=== PATIENT | male | born 1965 | race Caucasian/White ===

== ENCOUNTER 2024-07-04 04:34 | Day surgery (SDC) | payer BC ==
[2024-06-27 12:06] VITALS: BMI 29.2
[2024-07-04] MEDS: TETRACAINE/BENZOCAINE/BUTAMBEN 20 GM SPR TP ONE (10:54)
[2024-07-04 12:03] VITALS: BP 137/87; PULSE 90; RESP 20; TEMP 98
[2024-07-04 12:47] LABS: BASO % 1.1 % (0-2.0); EOS % 3.2 % (0-4.5); HEMATOCRIT 45.9 % (35.4-49); HEMOGLOBIN 15.8 GM/dL (11.7-16.9); LYMPH % 27.6 % (8-40); MCH 29.4 pg (25.7-33.7); MCHC 34.4 g/dl (32.0-35.9); MEAN CELL VOLUME 85.4 fl (80-96); MEAN PLT VOLUME 7.4 fl (7.5-11.1); MONO % 7.7 % (3.8-10.2); NEUT % 60.4 % (42.8-82.8); PLATELET COUNT 305 10^3/uL (134-434); RBC 5.37 M/mm3 (4.00-5.60); RDW 13.5 % (11.9-15.9); WHITE BLOOD COUNT 6.7 K/mm3 (4.0-10.0)
[2024-07-04 13:24] LABS: POTASSIUM 4.5 mmol/L (3.5-5.1)
[2024-07-04 13:26] LABS: ALBUMIN 4.6 g/dl (3.4-5.0); BLOOD UREA NITROGEN 15.3 mg/dL (7-18); CALCIUM 9.4 mg/dL (8.5-10.1)
[2024-07-04 13:30] LABS: CREATININE 0.9 mg/dL (0.55-1.3)
[2024-07-04 13:32] LABS: BILIRUBIN,TOTAL 0.6 mg/dL (0.2-1); TOT PROT 8.7 g/dl (6.4-8.2)
[2024-07-04 13:45] LABS: INR 1.02 (0.83-1.09); PROTHROMBIN TIME (PATIENT) 11.5 SEC (9.7-13.0)
== END 2024-07-04 12:50 | disposition home or self-care (01) ==
LOC: JASU-ENDO 04:34
PROVIDERS: ATTEND Internal Medicine Gastroenterology
PROC: 0DB98ZX Excision of Duodenum, Via Natural or Artificial Opening Endoscopic, Diagnostic (ICD-10-PCS; 2024-07-04)
PROC: 0DB68ZX Excision of Stomach, Via Natural or Artificial Opening Endoscopic, Diagnostic (ICD-10-PCS; 2024-07-04)
PROC: 0DBP8ZX Excision of Rectum, Via Natural or Artificial Opening Endoscopic, Diagnostic (ICD-10-PCS; principal; 2024-07-04 09:00)
DX: Z12.11 Encounter for screening for malignant neoplasm of colon (principal); D12.8 Benign neoplasm of rectum; K64.8 Other hemorrhoids; K57.30 Diverticulosis of large intestine without perforation or abscess without bleeding; K21.00 Gastro-esophageal reflux disease with esophagitis, without bleeding; K29.80 Duodenitis without bleeding; K29.50 Unspecified chronic gastritis without bleeding; Z85.038 Personal history of other malignant neoplasm of large intestine; Z98.0 Intestinal bypass and anastomosis status; R12 Heartburn; R10.13 Epigastric pain; I10 Essential (primary) hypertension
CPT/HCPCS: 36415; 80053; 82378; 84436; 84443; 85025; 85610; 88305-TC; 88342-TC

== ENCOUNTER 2024-07-26 04:01 | Day surgery (SDC) | payer BC ==
[2024-07-24 09:39] VITALS: BMI 29.7
[2024-07-26] MEDS ORDERED: MIDAZOLAM HCL 2 MG/2 ML SINGLE DOSE VIAL ONE ×2 (09:24→09:48)
[2024-07-26] MEDS ORDERED: PROPOFOL 20 ML ONE (09:31)
[2024-07-26] MEDS ORDERED: oxyCODONE HCL 5 MG TABLET PO PRN (09:37)
[2024-07-26] MEDS ORDERED: ONDANSETRON 4 MG/2 ML VIAL IVPUSH PRN (09:37)
[2024-07-26] MEDS ORDERED: LACTATED RINGERS SOLUTION 1,000 ML IV SCH (09:45)
[2024-07-26] MEDS ORDERED: DEXMEDETOMIDINE HCL 200 MCG/2 ML IVPB ONE (09:51)
[2024-07-26] MEDS ORDERED: REMIFENTANIL (ULTIVA) HCL 1 MG VIAL ONE (10:07)
[2024-07-26] MEDS: ceFAZolin 2 GRAM PREMIX BAG IVPB ONE (10:34)
[2024-07-26] MEDS ORDERED: PHENYLEPHRINE HCL 10 MG/1 ML SINGLE DOSE VIAL ONE (10:36)
[2024-07-26] MEDS: BUPIVACAINE HCL/PF 0.25% (2.5MG/ML) 10 ML VIAL IJ ONE (10:44)
[2024-07-26] MEDS: LIDOCAINE 1%/EPI 1:100000 (50 ML MULTI DOSE VIAL) INF ONE (10:44)
[2024-07-26] MEDS: ACETAMINOPHEN 1000 MG/100 ML BAG IVPB ONE (13:40)
[2024-07-26] MEDS: ACETAMINOPHEN INJECTION 100 ML ONE (13:40)
[2024-07-26 15:23] VITALS: RESP 18
[2024-07-26 16:03] VITALS: BP 130/71; PULSE 84; TEMP 98.6
== END 2024-07-26 15:50 | disposition home or self-care (01) ==
LOC: JASU-SURG 04:01
PROVIDERS: ATTEND Surgery
PROC: 0GSR0ZZ Reposition Parathyroid Gland, Open Approach (ICD-10-PCS; 2024-07-26)
PROC: 0GTH0ZZ Resection of Right Thyroid Gland Lobe, Open Approach (ICD-10-PCS; principal; 2024-07-26 10:00)
DX: C73 Malignant neoplasm of thyroid gland (principal); E04.1 Nontoxic single thyroid nodule
CPT/HCPCS: 86850; 86900; 86901; 88307-TC; 88331-TC; 94760; J0131